=== PATIENT | female | born 1980 | race Caucasian/White ===

== ENCOUNTER 2017-10-04 20:27 | Emergency (ER) | payer OTHER ==
--- NOTE | 2017-10-04 20:29 | ER Report ---
History and Physical Time Seen By MD: 20:28 HPI/ROS CHIEF COMPLAINT: Diarrhea HISTORY OF PRESENT ILLNESS: 37-year-old female presents ambulatory to the ER complaining of profuse diarrhea and weakness all day long. Patient denies recent travel, consumption of bad food or exposure to ill contacts. She denies recent antibiotic use. She describes liquid, mucousy stools multiple times throughout the day, approximately every hour. She's had some nausea but no vomiting. She denies fever and chills. 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 She is wondering if she may become infected. REVIEW OF SYSTEMS: Respiratory: No cough, no dyspnea. Cardiovascular: No chest pain, no palpitations. Gastrointestinal: As above Musculoskeletal: No back pain. Allergies: Coded Allergies: pollen extracts (Verified Allergy, Unknown, 10/04/17) Home Meds Active Scripts Metronidazole (FLAGYL) 500 Mg Tablet, 500 MG PO BID for infection, #14 TAB Prov:BRISA HARDY 10/05/17 Ciprofloxacin Hcl (CIPRO) 500 Mg Tablet, 500 MG PO BID for infection, #14 Prov:BRISA HARDY DO 10/05/17 Nitazoxanide (ALINIA) 500 Mg Tablet, 500 MG PO Q12H for Cryptosporidium treatment, #6 Prov:BRISA HARDY DO 10/04/17 Ondansetron Hcl (ZOFRAN) 4 Mg Tablet, 4 MG PO Q6H Y for NAUSEA/VOMITING, #15 Prov:BRISA HARDY DO 10/04/17 Reported Medications [ contronl pills] No Conflict Check 10/04/17 Reviewed Nurses Notes: Yes Old Medical Records Reviewed: Yes Constitutional Vital Sign - Last 24 Hours 10/04/17 10/04/17 10/04/17 10/04/17 20:31 20:35 20:37 20:42 Temp 97.2 Pulse 82 83 79 Resp 20 14 B/P (MAP) 185/113 183/113 (136) 185/113 (137) Pulse Ox 97 97 98 O2 Delivery Room Air 10/04/17 10/04/17 10/04/17 10/04/17 20:47 21:07 21:12 21:17 Pulse 83 93 82 Resp 18 35 18 17 Pulse Ox 96 97 97 10/04/17 10/04/17 10/04/17 1/15/18 21:22 21:27 21:30 21:32 Pulse 94 82 82 Resp 11 16 19 B/P (MAP) 175/111 (132) Pulse Ox 98 97 97 10/04/17 10/04/17 10/04/17 10/04/17 21:37 21:42 21:47 21:52 Pulse 88 88 86 91 Resp 16 20 21 21 Pulse Ox 98 96 94 96 10/04/17 10/04/17 10/04/17 10/04/17 21:57 22:02 22:07 22:12 Pulse 89 86 95 92 Resp 18 19 22 19 Pulse Ox 96 96 93 95 10/04/17 10/04/17 10/04/17 10/04/17 22:17 22:22 22:24 22:32 Temp 97.2 Pulse 84 79 Resp 19 16 17 B/P (MAP) 164/110 (128) Pulse Ox 96 95 10/04/17 10/04/17 10/04/17 10/04/17 22:37 22:42 22:47 22:52 Pulse 74 69 66 67 Resp 18 19 21 20 Pulse Ox 98 96 96 97 10/04/17 10/04/17 10/04/17 10/04/17 22:57 23:00 23:02 23:07 Pulse 67 74 66 Resp 18 16 16 B/P (MAP) 153/107 (122) Pulse Ox 97 95 98 10/04/17 10/04/17 10/04/17 10/04/17 23:12 23:17 23:22 23:27 Pulse 74 65 70 69 Resp 17 14 17 18 Pulse Ox 97 93 94 95 10/04/17 10/04/17 10/04/17 10/04/17 23:30 23:32 23:37 23:42 Pulse 69 71 68 Resp 17 18 20 B/P (MAP) 138/97 (111) Pulse Ox 98 93 90 10/04/17 10/04/17 10/04/17 10/05/17 23:47 23:52 23:57 00:02 Pulse 68 75 71 76 Resp 13 21 19 18 Pulse Ox 94 93 93 93 10/05/17 10/05/17 10/05/17 00:07 00:12 00:19 Pulse 76 82 Resp 20 16 B/P (MAP) 131/93 (106) Pulse Ox 95 97 Physical Exam General Appearance: The patient is alert, has no immediate need for airway protection and no current signs of toxicity., Vital signs stable, blood pressure elevated, pulse ox normal, afebrile HEENT: Pupils equal and round no injection. Oropharynx without redness or exudate, mucous members are moist Respiratory: Chest is non tender, lungs are clear to auscultation. Cardiac: regular rate and rhythm Gastrointestinal: Abdomen is soft, mild diffuse tenderness, no rebound or guarding, no masses, bowel sounds normal. Musculoskeletal: Neck: Neck is supple and non tender. No lymphadenopathy Extremities have full range of motion and are non tender. Skin: No rashes or lesions. DIFFERENTIAL DIAGNOSIS: After history and physical exam differential diagnosis was considered forabdominal pain including but not limited to appendicitis, cholecystitis, gastritis, gastroenteritis, food poisoning, viral syndrome, infectious diarrhea and urinary tract infection. Medical Decision Making Data Points Result Diagram: 10/04/17211510/04/172115 Laboratory Hematology Test 10/04/17 20:30 10/04/17 20:57 10/04/17 21:16 Urine Color Yellow Urine Clarity Slightly-cloudy Urine pH 5.0 pH (4.8-9.5) Urine Specific [place] 1.030 Urine Protein 100 mg/dL (NEGATIVE) Urine Glucose (UA) Negative mg/dL (NEGATIVE) Urine Ketones 80 mg/dL (NEGATIVE) Urine Blood Negative (NEGATIVE) Urine Nitrite Negative (NEGATIVE) Urine Bilirubin Negative (NEGATIVE) Urine Urobilinogen Negative mg/dL (0.2-1.9) Urine Leukocyte Esterase Trace (NEGATIVE) Urine RBC 2 /HPF (0-2/HPF) Urine WBC 4 /HPF (0-5/HPF) Urine Squamous Epithelial Cells Many /LPF (</=FEW) Urine Bacteria Few /HPF (NONE-FEW) Urine Mucus Few /HPF (NONE-FEW) Stool Occult Blood (IFOB) Positive (NEGATIVE) Stool Leukocytes, Qualitative Positive Clostridium Difficile Toxin A & B Negative Clostridium difficile Antigen Negative Red Blood Count 5.53 M/uL (4.17-5.56) Mean Corpuscular Volume 85.6 fL (80.0-96.0) Mean Corpuscular Hemoglobin 30.0 pg (26.0-33.0) Mean Corpuscular Hemoglobin Concent 35.1 g/dL (32.0-36.0) Red Cell Distribution Width 13.0 % (11.5-14.5) Mean Platelet Volume 9.1 fL (7.2-11.1) Neutrophils (%) (Auto) 87.1 % (39.4-72.5) Lymphocytes (%) (Auto) 8.8 % (17.6-49.6) Monocytes (%) (Auto) 3.3 % (4.1-12.4) Eosinophils (%) (Auto) 0.4 % (0.4-6.7) Basophils (%) (Auto) 0.4 % (0.3-1.4) Nucleated RBC Relative Count (auto) 0.1 /100WBC Neutrophils # (Auto) 9.1 K/uL (2.0-7.4) Lymphocytes # (Auto) 0.9 K/uL (1.3-3.6) Monocytes # (Auto) 0.3 K/uL (0.3-1.0) Eosinophils # (Auto) 0.0 K/uL (0.0-0.5) Basophils # (Auto) 0.0 K/uL (0.0-0.1) Nucleated RBC Absolute Count (auto) 0.01 K/uL Sodium Level 138 mmol/L (137-145) Potassium Level 3.0 mmol/L (3.5-5.0) Chloride Level 104 mmol/L (98-107) Carbon Dioxide Level 20 mmol/L (22-31) Blood Urea Nitrogen 10 mg/dl (7-18) Creatinine 0.60 mg/dl (0.52-1.04) Glomerular Filtration Rate Calc > 60.0 Random Glucose 134 mg/dl (75-110) Calcium Level 9.1 mg/dl (8.4-10.2) Total Bilirubin 0.8 mg/dl (0.2-1.3) Aspartate Amino Transf (AST/SGOT) 23 U/L (0-35) Alanine Aminotransferase (ALT/SGPT) 26 U/L (0-56) Alkaline Phosphatase 70 U/L (0-126) C-Reactive Protein 1.3 mg/dl (<1.0) Total Protein 8.7 gm/dl (6.3-8.2) Albumin 4.2 g/dl (3.5-5.0) Amylase Level 110 U/L (0-110) Lipase 63 U/L (23-300) Human Chorionic Gonadotropin, Qual Negative (NEGATIVE) Chemistry Test 10/04/17 20:30 10/04/17 20:57 10/04/17 21:16 Urine Color Yellow Urine Clarity Slightly-cloudy Urine pH 5.0 pH (4.8-9.5) Urine Specific [place] 1.030 Urine Protein 100 mg/dL (NEGATIVE) Urine Glucose (UA) Negative mg/dL (NEGATIVE) Urine Ketones 80 mg/dL (NEGATIVE) Urine Blood Negative (NEGATIVE) Urine Nitrite Negative (NEGATIVE) Urine Bilirubin Negative (NEGATIVE) Urine Urobilinogen Negative mg/dL (0.2-1.9) Urine Leukocyte Esterase Trace (NEGATIVE) Urine RBC 2 /HPF (0-2/HPF) Urine WBC 4 /HPF (0-5/HPF) Urine Squamous Epithelial Cells Many /LPF (</=FEW) Urine Bacteria Few /HPF (NONE-FEW) Urine Mucus Few /HPF (NONE-FEW) Stool Occult Blood (IFOB) Positive (NEGATIVE) Stool Leukocytes, Qualitative Positive Clostridium Difficile Toxin A & B Negative Clostridium difficile Antigen Negative White Blood Count 10.4 k/uL (4.5-11.0) Red Blood Count 5.53 M/uL (4.17-5.56) Hemoglobin 16.6 g/dL (12.0-16.0) Hematocrit 47.3 % (34.0-47.0) Mean Corpuscular Volume 85.6 fL (80.0-96.0) Mean Corpuscular Hemoglobin 30.0 pg (26.0-33.0) Mean Corpuscular Hemoglobin Concent 35.1 g/dL (32.0-36.0) Red Cell Distribution Width 13.0 % (11.5-14.5) Platelet Count 228 K/uL (150-450) Mean Platelet Volume 9.1 fL (7.2-11.1) Neutrophils (%) (Auto) 87.1 % (39.4-72.5) Lymphocytes (%) (Auto) 8.8 % (17.6-49.6) Monocytes (%) (Auto) 3.3 % (4.1-12.4) Eosinophils (%) (Auto) 0.4 % (0.4-6.7) Basophils (%) (Auto) 0.4 % (0.3-1.4) Nucleated RBC Relative Count (auto) 0.1 /100WBC Neutrophils # (Auto) 9.1 K/uL (2.0-7.4) Lymphocytes # (Auto) 0.9 K/uL (1.3-3.6) Monocytes # (Auto) 0.3 K/uL (0.3-1.0) Eosinophils # (Auto) 0.0 K/uL (0.0-0.5) Basophils # (Auto) 0.0 K/uL (0.0-0.1) Nucleated RBC Absolute Count (auto) 0.01 K/uL Glomerular Filtration Rate Calc > 60.0 Calcium Level 9.1 mg/dl (8.4-10.2) Total Bilirubin 0.8 mg/dl (0.2-1.3) Aspartate Amino Transf (AST/SGOT) 23 U/L (0-35) Alanine Aminotransferase (ALT/SGPT) 26 U/L (0-56) Alkaline Phosphatase 70 U/L (0-126) C-Reactive Protein 1.3 mg/dl (<1.0) Total Protein 8.7 gm/dl (6.3-8.2) Albumin 4.2 g/dl (3.5-5.0) Amylase Level 110 U/L (0-110) Lipase 63 U/L (23-300) Human Chorionic Gonadotropin, Qual Negative (NEGATIVE) Urinalysis Test 10/04/17 20:30 Urine Color Yellow Urine Clarity Slightly-cloudy Urine pH 5.0 pH (4.8-9.5) Urine Specific [place] 1.030 Urine Protein 100 mg/dL (NEGATIVE) Urine Glucose (UA) Negative mg/dL (NEGATIVE) Urine Ketones 80 mg/dL (NEGATIVE) Urine Blood Negative (NEGATIVE) Urine Nitrite Negative (NEGATIVE) Urine Bilirubin Negative (NEGATIVE) Urine Urobilinogen Negative mg/dL (0.2-1.9) Urine Leukocyte Esterase Trace (NEGATIVE) Urine RBC 2 /HPF (0-2/HPF) Urine WBC 4 /HPF (0-5/HPF) Urine Squamous Epithelial Cells Many /LPF (</=FEW) Urine Bacteria Few /HPF (NONE-FEW) Urine Mucus Few /HPF (NONE-FEW) Microbiology Microbiology Date/Time Source Procedure Growth Status 10/04/17 20:57 Stool Gram Stain - Final Resulted 10/04/17 20:57 Stool Stool Culture - Preliminary NORMAL SAMSON SO FAR, CULTURE REINCUBATED Resulted ED Course/Re-evaluation Clinical Indication for ER IV: Hydration, IV Access ED Course Patient was admitted to an examination room. H&P was done. The differential diagnoses was considered. On clinical examination. Patient has benign nonsurgical abdominal examination. She provides a stool specimen which is grossly mucous and blood. Stool studies are performed. 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 The calves were suspected of having Cryptosporidium. She may also have contracted other pathogens. She is rehydrated with IV fluids, Zofran for nausea, Toradol for pain. She feels much better. She'll be covered with Cipro and Flagyl 500 mg by mouth twice a day of each. She'll be given prescription for antiparasitic drugs. Patient's advised clear liquid diet. Imodium to control diarrhea, tramadol for pain, Zofran for nausea. Further stool studies are pending Cryptosporidium by EIA. Patient advised to return the ER for intractable vomiting, high fevers or worsening abdominal pain. Patient was advised potassium-rich fluids such as Gatorade to replace her potassium. Decision to Disposition Date: Oct 04, 2017 Decision to Disposition Time: 21:41 Depart Departure Latest Vital Signs Vital Signs Date Time Temp Pulse Resp B/P (MAP) Pulse Ox O2 Delivery O2 Flow Rate FiO2 10/05/17 00:19 131/93 (106) 10/05/17 00:12 82 16 97 10/04/17 22:24 97.2 10/04/17 20:31 Room Air Impression: Primary Impression: Diarrhea Additional Impression: Cryptosporidium exposure Condition: Improved Disposition: HOME OR SELF-CARE Referrals: TERESITA DHALIWAL MD New Scripts Metronidazole (FLAGYL) 500 Mg Tablet 500 MG PO BID for infection, #14 TAB Prov: BRISA HARDY DO 10/05/17 Ciprofloxacin Hcl (CIPRO) 500 Mg Tablet 500 MG PO BID for infection, #14 Prov: BRISA HARDY DO 10/05/17 Nitazoxanide (ALINIA) 500 Mg Tablet 500 MG PO Q12H for Cryptosporidium treatment, #6 Prov: BRISA HARDY DO 10/04/17 Ondansetron Hcl (ZOFRAN) 4 Mg Tablet 4 MG PO Q6H Y for NAUSEA/VOMITING, #15 Prov: BRISA HARDY DO 10/04/17 Patient Instructions: Acute Diarrhea (ED), Clear Liquid Diet (ED) Additional Instructions: Follow clear liquid diet for 24-48 hours Take ibuprofen 200 mg 3 tablets 3 times a day for inflammatory pain relief Follow-up with your primary care physician if unimproved in 3-5 days, he may go to the physician listed on your paperwork. If he does not have any primary care physician Problem Qualifiers Primary Impression: Diarrhea Diarrhea type: presumed infectious Qualified Codes: R19.7 - Diarrhea, unspecified BRISA HARDY DO Oct 04, 2017 20:29
[2017-10-04] MEDS ORDERED: [UNRECOGNIZED DRUG - REMARK] (20:44)
[2017-10-04] MEDS ORDERED: NS(*) 0.9% 1000 ML BAG 1,000 ML IV ONE (20:49)
[2017-10-04] MEDS ORDERED: KETOROLAC 30 MG/ML VIAL IVP ONE (20:50)
[2017-10-04] MEDS ORDERED: ONDANSETRON 4 MG/2 ML VIAL IVP ONE (20:50)
[2017-10-04 21:25] LABS: PLATELET COUNT, AUTOMATED 228 K/uL (150-450)
[2017-10-04] MEDS ORDERED: ONDA4TAB97 PO (22:55)
[2017-10-04] MEDS ORDERED: NITA500T4 PO (22:55)
[2017-10-04] MEDS ORDERED: ONDANSETRON 4 MG ODT TH SL ONE (23:05)
[2017-10-04] MEDS ORDERED: fentaNYL CITR 100 MCG/2 ML AMP IVP ONE (23:15)
[2017-10-05 00:19] VITALS: BP 131/93
[2017-10-05] MEDS ORDERED: CIPR-344 PO (00:20)
[2017-10-05] MEDS ORDERED: METR-1 PO (00:20)
[2017-10-05] MEDS ORDERED: METRONIDAZOLE 500 MG TABLET PO ONE (00:25)
[2017-10-05] MEDS ORDERED: CIPROFLOXACIN 500 MG TAB PO ONE (00:25)
== END 2017-10-05 00:33 | disposition home or self-care (01) ==
LOC: ER 20:43
DX: R19.7 Diarrhea, unspecified (principal); Z20.89 Contact with and (suspected) exposure to other communicable diseases
CPT/HCPCS: 81001; 82150; 82274; 83630; 83690; 84703; 85025; 86140; 87045; 87177; 87205; 87324; 87328; 87449; 96361; 96374; 96375; 99284; J1885; J2405; J3010; J7030; S0119; 82040; 82247; 82310; 82374; 82435; 82565; 82947; 84075; 84132; 84155; 84295; 84450; 84460; 84520